=== PATIENT | male | born 1995 | race Hispanic/Latino ===

== ENCOUNTER 2024-12-13 03:16 | Emergency (ER) | payer OTHER ==
[~2024-12-13] VITALS: Ht 177.8 cm; Wt 82.6 kg
[2024-12-13] MEDS ORDERED: ACETAMINOPHEN 325 MG TAB PO ONE (03:45)
[2024-12-13 04:04] VITALS: BP 134/72
== END 2024-12-13 04:05 | disposition home or self-care (01) ==
LOC: ED 03:16
DX: S06.9X9A Unspecified intracranial injury with loss of consciousness of unspecified duration, initial encounter (principal); W00.0XXA Fall on same level due to ice and snow, initial encounter; F10.129 Alcohol abuse with intoxication, unspecified
CPT/HCPCS: 36415; 70450; 93005; 93010; 99284-25; A9270; G0480